=== PATIENT | female | born 1970 | race Two or more races ===

== ENCOUNTER 2024-01-16 10:21 | Day surgery (SDC) | payer BC ==
[2024-01-12 12:03] VITALS: BMI 51.7
[2024-01-16 12:09] VITALS: TEMP 97
[2024-01-16 12:27] VITALS: RESP 18
[2024-01-16 12:28] VITALS: BP 141/81; PULSE 88
== END 2024-01-16 12:35 | disposition home or self-care (01) ==
LOC: FASU-ENDO 10:21
PROVIDERS: ATTEND Internal Medicine Gastroenterology
PROC: 0DB68ZX Excision of Stomach, Via Natural or Artificial Opening Endoscopic, Diagnostic (ICD-10-PCS; 2024-01-16)
PROC: 0DB98ZX Excision of Duodenum, Via Natural or Artificial Opening Endoscopic, Diagnostic (ICD-10-PCS; principal; 2024-01-16 11:48)
DX: K44.9 Diaphragmatic hernia without obstruction or gangrene (principal); K31.89 Other diseases of stomach and duodenum
CPT/HCPCS: 88305-TC; 88342-TC